=== PATIENT | male | born 1975 | race Caucasian/White ===

== ENCOUNTER 2016-12-06 20:39 | Emergency (ER) | payer OTHER ==
[~2016-12-06] VITALS: Ht 188 cm; Wt 115.2 kg
--- NOTE | 2016-12-06 22:12 | PHYS DOC ---
Past Medical History Past Medical History: Diabetes-Type II, Hypertension Past Surgical History: Other Additional Past Surgical Histo: L ELBOW, R SHOULDER, L ANKLE Alcohol Use: Occasionally Drug Use: None Adult General Chief Complaint Chief Complaint: ABDOMINAL PAIN HPI HPI Patient is a 41 year old male who presents with abdominal pain. Patient reports for the past 3-4 days he has been having epigastric pain. He describes a sore, "squeezing" pain that waxes and wanes with clear mitigating factors. Pain is accompanied by nausea and a couple bouts of loose stools. He tried some Tums at home with insufficient relief. No prior similar episodes. Review of Systems Review of Systems Constitutional: Denies fever or chills Respiratory: Denies cough or shortness of breath Cardiovascular: Denies chest pain GI: Epigastric pain, nausea. Denies vomiting, bloody stools : Denies dysuria or hematuria Musculoskeletal: Denies back pain or joint pain Integument: Denies rash or skin lesions Neurologic: Denies headache, focal weakness or sensory changes Current Medications Current Medications Current Medications Medications (Trade) Dose Ordered Sig/Randy Start Time Stop Time Status Last Admin Dose Admin Famotidine (Pepcid) 20 mg 1X ONCE 12/06/16 22:30 12/06/16 22:31 DC 12/06/16 22:34 20 MG Morphine Sulfate 4 mg 1X ONCE 12/06/16 22:30 12/06/16 22:40 DC Multi-Ingredient Mouthwash/Gargle (Gi Cocktail Single Dose) 15 ml 1X ONCE 12/06/16 23:00 12/06/16 23:01 DC 12/06/16 22:57 15 ML Ondansetron HCl (Zofran) 4 mg 1X ONCE 12/06/16 22:30 12/06/16 22:31 DC 12/06/16 22:34 4 MG Sodium Chloride (Iv Sodium Chloride 0.9% 1000ml Bag) 1,000 ml @ 1,000 mls/hr Q1H 12/06/16 22:30 12/06/16 23:26 DC 12/06/16 22:34 1,000 MLS/HR Allergies Allergies Allergies Coded Allergies Type Severity Reaction Last Updated Verified cortez Allergy Intermediate Hives 12/06/16 Yes Physical Exam Physical Exam Constitutional: Well developed, well nourished, no acute distress, non-toxic appearance HENT: Normocephalic, atraumatic, bilateral external ears normal Eyes: EOMI, conjunctiva normal, no discharge Neck: Normal range of motion, no stridor Cardiovascular: Heart rate normal, regular rhythm, no murmur Lungs & Thorax: Bilateral breath sounds clear to auscultation Abdomen: Bowel sounds normal, soft, non-distended, epigastric TTP without guarding or rebound Skin: Warm, dry, no erythema, no rash Extremities: No obvious deformity, no edema Neurologic: Alert and oriented X 3, no gross deficits noted Current Patient Data Vital Signs Vital Signs Date Time Temp Pulse Resp B/P Pulse Ox O2 Delivery O2 Flow Rate FiO2 12/06/16 22:55 78 18 145/85 96 Room Air 12/06/16 20:47 98.1 98.1 Lab Values Laboratory Tests Test 12/06/16 21:50 White Blood Count 6.6x10^3/uL (4.0-11.0) Red Blood Count 5.20x10^6/uL (4.30-5.70) Hemoglobin 15.9g/dL (13.0-17.5) Hematocrit 47.0% (39.0-53.0) Mean Corpuscular Volume 90fL (79-100) Mean Corpuscular Hemoglobin 31pg (25-35) Mean Corpuscular Hemoglobin Concent 34g/dL (31-37) Red Cell Distribution Width 12.5% (11.5-14.5) Platelet Count 192x10^3/uL (140-400) Neutrophils (%) (Auto) 58% (31-73) Lymphocytes (%) (Auto) 33% (24-48) Monocytes (%) (Auto) 8% (0-9) Eosinophils (%) (Auto) 1% (0-3) Basophils (%) (Auto) 1% (0-3) Neutrophils # (Auto) 3.8x10^3uL (1.8-7.7) Lymphocytes # (Auto) 2.2x10^3/uL (1.0-4.8) Monocytes # (Auto) 0.5x10^3/uL (0.0-1.1) Eosinophils # (Auto) 0.1x10^3/uL (0.0-0.7) Basophils # (Auto) 0.0x10^3/uL (0.0-0.2) Sodium Level 137mmol/L (136-145) Potassium Level 3.4mmol/L (3.5-5.1) L Chloride Level 98mmol/L (98-107) Carbon Dioxide Level 26mmol/L (21-32) Anion Gap 13 (6-14) Blood Urea Nitrogen 12mg/dL (8-26) Creatinine 1.0mg/dL (0.7-1.3) Estimated GFR (Cockcroft-Gault) 81.6 BUN/Creatinine Ratio 12 (6-20) Glucose Level 306mg/dL (70-99) H Calcium Level 9.2mg/dL (8.5-10.1) Total Bilirubin 0.7mg/dL (0.2-1.0) Aspartate Amino Transferase (AST) 23U/L (15-37) Alanine Aminotransferase (ALT) 52U/L (16-63) Alkaline Phosphatase 74U/L (46-116) Total Protein 7.8g/dL (6.4-8.2) Albumin 4.2g/dL (3.4-5.0) Albumin/Globulin Ratio 1.2 (1.0-1.7) Lipase 161U/L (73-393) Laboratory Tests 12/06/16 21:50 Laboratory Tests 12/06/16 21:50 EKG EKG [] Radiology/Procedures Radiology/Procedures [] Course & Med Decision Making Course & Med Decision Making Pertinent Labs and Imaging studies reviewed. (See chart for details) Patient is 41 year old male who presents with epigastric pain. DDx includes gastritis, PUD, pancreatitis, intestinal spasm. Will check labs to evaluate. IV fluid, pepcid, nausea meds, GI cocktail ordered for relief of symptoms. Labs largely unremarkable other than hyperglycemia. Discussed results with patient, who is feeling better at this time. Will discharge with rx for omeprazole, pain meds, nausea meds. Given instructions for follow up and return precautions. Dragon Disclaimer Dragon Disclaimer This electronic medical record was generated, in whole or in part, using a voice recognition dictation system. Departure Departure Impression: Primary Impression: Epigastric abdominal pain Disposition: 01 HOME, SELF-CARE Condition: IMPROVED Referrals: CATRACHITO SAVAGE MD (PCP) MICHELLE DWYER MD Patient Instructions: Abdominal Pain (Nonspecific), Peptic Ulcer Disease Additional Instructions: Thank you for allowing us to provide care today in the Emergency Department. Take the provided medication as directed. Use caution when taking the pain medication as it can make you drowsy. Schedule a follow up appointment with your primary care doctor and with a GI specialist using the provided contact information. Return promptly to the Emergency Department if you develop any new or concerning symptoms. Scripts Ondansetron (Zofran Odt)4 Mg Tab.rapdis1 Tab SL Q8HRS PRN NAUSEA #15 TAB Prov:BIJAL DURON MD 12/06/16 Omeprazole 20 Mg Tablet.dr20 Mg PO DAILY #30 TAB Prov:BIJAL DURON MD 12/06/16 Acetaminophen With Codeine (Tylenol With Codeine #3 Tablet)1 Each Tablet1 Tab PO PRN Q6HRS PRN PAIN #20 TAB Prov:BIJAL DURON MD 12/06/16 BIJAL DURON MD Dec 06, 2016 22:12
[2016-12-06 22:19] LABS: BASO % 1 % (0-3); EOS % 1 % (0-3); HEMOGLOBIN 15.9 g/dL (13.0-17.5); LYMPH # 2.2 x10^3/uL (1.0-4.8); LYMPH % 33 % (24-48); MEAN CORPUSCULAR HEMOGLOBIN 31 pg (25-35); MEAN CORPUSCULAR HGB CONC 34 g/dL (31-37); MEAN CORPUSCULAR VOLUME 90 fL (79-100); MONO % 8 % (0-9); NEUT % 58 % (31-73); PLATELET COUNT 192 x10^3/uL (140-400); RED CELL DISTRIBUTION WIDTH 12.5 % (11.5-14.5); WHITE BLOOD COUNT 6.6 x10^3/uL (4.0-11.0)
[2016-12-06] MEDS ORDERED: MORPHINE SULFATE 4 MG/ML DISP.SYRIN. IV ONE (22:30)
[2016-12-06] MEDS ORDERED: FAMOTIDINE 20 MG/2 ML VIAL IVP ONE (22:30)
[2016-12-06] MEDS ORDERED: IV NORMAL SALINE 1000ML BAG 1,000 ML IV SCH (22:30)
[2016-12-06] MEDS ORDERED: ONDANSETRON PF 4 MG/2 ML VIAL. IV ONE (22:30)
[2016-12-06 22:33] LABS: CALCIUM 9.2 mg/dL (8.5-10.1); GFR 81.6; POTASSIUM 3.4 mmol/L (3.5-5.1)
[2016-12-06 22:39] LABS: ALBUMIN 4.2 g/dL (3.4-5.0); ALBUMIN/GLOBULIN RATIO 1.2 (1.0-1.7); TOTAL BILIRUBIN 0.7 mg/dL (0.2-1.0); TOTAL PROTEIN 7.8 g/dL (6.4-8.2)
[2016-12-06 22:55] VITALS: BP 145/85
[2016-12-06] MEDS ORDERED: LIDO:MAALOX:DONNATAL 1:1:1 15 ML SINGLE DOSE SWSW ONE (23:00)
[2016-12-06] MEDS ORDERED: ACET-704 PO (23:13)
[2016-12-06] MEDS ORDERED: ONDA4TAB10 SL (23:13)
[2016-12-06] MEDS ORDERED: OMEP20TA PO (23:13)
== END 2016-12-06 23:26 | disposition home or self-care (01) ==
LOC: ER 20:39
DX: R10.13 Epigastric pain (principal); R11.0 Nausea; R19.7 Diarrhea, unspecified; E11.9 Type 2 diabetes mellitus without complications; I10 Essential (primary) hypertension; Z91.018 Allergy to other foods
CPT/HCPCS: 36415; 80053; 83690; 85027; 96361; 96374; 96375; 99284; J2405; J7030; S0028

== ENCOUNTER → 2017-03-07 | Outpatient (CLI) | payer OTHER ==
[~2017-03-07] MED LIST: ACET-704 PO; OMEP20TA8 PO; ONDA4TAB10 SL
--- NOTE | 2017-03-07 11:37 | KCIC ---
INDICATION: Shoulder pain COMPARISON: None. IMPRESSION: Left shoulder: 3 views obtained without definite acute fracture or dislocation. Electronically signed by: Shaun Ku MD (03/07/2017 11:33 AM) [email or web address]
== END | disposition home or self-care (01) ==
LOC: KCIC 11:04
PROVIDERS: ATTEND Family Medicine
DX: M25.512 Pain in left shoulder (principal)
CPT/HCPCS: 73030